=== PATIENT | male | born 1945 | race Caucasian/White ===

== ENCOUNTER 2016-12-21 05:58 | Day surgery (SDC) | payer MEDICARE, OTHER ==
[~2016-12-21 05:58] MED LIST: ASPI81TA45 PO; BRIM0.2S EACH EYE; CLON1 PO; CYAN100017 PO; CYMB30CA PO; DULO30 PO; FEXO180 PO; LISI-360 PO; LISI10 PO; PRAV40 PO; PROT40TA PO; REST0.05 EACH EYE; SYNT50TA PO; TAB-TAB PO; TIMO0.5S29 EACH EYE
[2016-12-21] MEDS ORDERED: ceFAZolin 2 GM PREMIX 50 ML IV SCH (06:15)
[2016-12-21] MEDS ORDERED: MUPIROCIN 2% OINT 1 APPLIC/GM SYR NASAL SCH (06:15)
[2016-12-21] MEDS ORDERED: Hold AM Insulin & AM Hypoglycemic medications in diabetic patients PRN (06:15)
[2016-12-21] MEDS ORDERED: NS 1000 ML IV SCH (06:15)
[2016-12-21] MEDS ORDERED: DULO1CAP3 PO (06:48)
[2016-12-21] MEDS ORDERED: TRAZ150T75 PO (06:48)
[2016-12-21] MEDS ORDERED: COMB0.2S RIGHT EYE (06:48)
[2016-12-21] MEDS ORDERED: LEVO50TA4 PO (06:48)
[2016-12-21] MEDS ORDERED: ASPI1TAB69 PO (06:48)
[2016-12-21] MEDS ORDERED: DILT120C7 PO (06:48)
[2016-12-21] MEDS ORDERED: MULT1TAB84 PO (06:48)
[2016-12-21] MEDS ORDERED: ATOR20TA15 PO (06:48)
[2016-12-21] MEDS ORDERED: LISI-515 PO (06:48)
[2016-12-21] MEDS ORDERED: ASPI325T PO (06:50)
[2016-12-21] MEDS ORDERED: LOTE0.5S RIGHT EYE (06:52)
[2016-12-21] MEDS ORDERED: REST0.05 EACH EYE (06:52)
[2016-12-21] MEDS: CHLORHEXIDINE GLUCONATE 2 % 1 PACK (2 CLOTHS) TOPICAL SCH ×2 (07:31→08:16)
[2016-12-21] MEDS: POVIDONE IODINE 5% (ANTISEPSIS KIT) 4 APPLICATIONS EACH NARE SCH ×2 (07:31→08:15)
--- NOTE | 2016-12-21 13:07 | MA ---
cc: DAV DANIELS MD, BETH A. MD DATE 12/21/[address] Dav Daniels PREPROCEDURE DIAGNOSIS Atrial fibrillation of uncertain burden PROCEDURE Successful loop recorder insertion. DESCRIPTION OF PROCEDURE The patient was brought to the DOC unit in the postabsorptive state after informed consent was obtained and a [email or web address] LINQ loop recorder was inserted subcutaneously in the left chest. The patient tolerated the procedure well without any apparent complications. Initial R-wave was 0.3 mV. Tachybrady pause and atrial fibrillation detection was enabled. The serial number was [id number]. Dav Daniels MD OLEG/SARAH /8:04 AM /12:53 PM
== END 2016-12-21 08:42 | disposition home or self-care (01) ==
LOC: HCAT 05:58 → HDIC 05:58 → HCAT 08:42
PROVIDERS: ATTEND Nuclear Medicine Nuclear Cardiology
DX: I48.91 Unspecified atrial fibrillation (principal); I35.1 Nonrheumatic aortic (valve) insufficiency; I34.0 Nonrheumatic mitral (valve) insufficiency; I11.9 Hypertensive heart disease without heart failure; E66.01 Morbid (severe) obesity due to excess calories; Z79.82 Long term (current) use of aspirin
CPT/HCPCS: 33282; C1764; J0690; J7030